=== PATIENT | male | born 1935 | race Hispanic/Latino ===

== ENCOUNTER 2020-12-18 12:33 | Emergency (ER) | payer MEDICARE ==
[2020-12-18] MEDS ORDERED: ACETAMINOPHEN 500 MG TAB PO ONE (13:16)
[2020-12-18 13:54] LABS: Basophils # (Auto) 0.1 K/mm3 (0.0-0.1); Basophils % (Auto) 1.2 % (0.0-1.8); Eosinophils # (Auto) 0.3 K/mm3 (0.0-0.4); Eosinophils % (Auto) 5.8 % (0.0-4.3); Hematocrit 41.3 % (35.5-45.6); Hemoglobin 13.4 gm/dl (11.8-15.2); Lymphocytes # (Auto) 1.3 K/mm3 (1.2-5.4); Lymphocytes % (Auto) 23.6 % (13.4-35.0); Mean Corpuscular HGB Conc 32 % (32-34); Mean Corpuscular Volume 85 fl (84-94); Monocytes # (Auto) 0.7 K/mm3 (0.0-0.8); Monocytes % (Auto) 12.6 % (0.0-7.3); Platelet Count 185 K/mm3 (140-440); Red Blood Count 4.86 M/mm3 (3.65-5.03); Red Cell Distribution Width 14.7 % (13.2-15.2)
[2020-12-18 14:16] LABS: Albumin 4.1 g/dL (3.9-5); Calcium 8.8 mg/dL (8.4-10.2)
--- NOTE | 2020-12-18 15:54 | Emergency Department Report ---
- General Chief complaint: Extremity Problem,Nontraumatic Stated complaint: RT LEG Time Seen by Provider: 12/18/20 15:11 Source: patient Mode of arrival: Wheelchair Limitations: No Limitations - History of Present Illness Initial comments: 85-year-old male presents to ED with rash to bilateral lower legs x2 to 3 weeks. She was initially seen at an urgent care and given a prescription for Bactrim, which he took for 10 days. Patient states the Bactrim did not seem to work and the rash has progressed. Patient denies any pain but reports itching. Patient denies any new products such as lotion, detergent. He denies any yard work or exposure to plants. He denies any insect bites to the ankles or legs. Patient denies any new medications. Patient denies any fever. He denies any pain to the area. Patient states he had a similar occurrence approximately 3 years ago. Patient shows me the scars on his right anterior thigh. Patient states the same thing happened at that time he was given a prescription for triamcinolone cream which helped the rash go away. Patient states he does not remember the diagnosis, but was told at that time that it was something "that old people get." Patient states he does not have any past medical history. He does not see a PCP. He does not take any medications. MD complaint: rash -: week(s) (3) Location: LLE, RLE Severity: moderate Quality: other (Itching) Consistency: constant Improves with: none Worsens with: none Context: other (Denies any new medication, recent illness, recent antibiotics, foreign travel, or insect bites) Treatments Prior to Arrival: antibiotic (Bactrim) - Related Data Previous Rx's Medication Instructions Recorded Last Taken Type Triamcinolone Acetonide [Triderm] 1 applicatio TP BID #454 gm 12/18/20 Unknown Rx Allergies Allergy/AdvReac Type Severity Reaction Status Date / Time No Known Allergies Allergy Unverified 12/18/20 13:19 Abscess Boil HPI - HPI Chief Complaint: Extremity Problem,Nontraumatic Stated Complaint: RT LEG Time Seen by Provider: 12/18/20 15:11 Home Medications: Previous Rx's Medication Instructions Recorded Last Taken Type Triamcinolone Acetonide [Triderm] 1 applicatio TP BID #454 gm 12/18/20 Unknown Rx Allergies/Adverse Reactions: Allergies Allergy/AdvReac Type Severity Reaction Status Date / Time No Known Allergies Allergy Unverified 12/18/20 13:19 ED Review of Systems ROS: Stated complaint: RT LEG Other details as noted in HPI Comment: All other systems reviewed and negative Constitutional: denies: chills, fever Gastrointestinal: denies: nausea, vomiting Skin: rash, pruritus ED Past Medical Hx - Past Medical History Previous Medical History?: No - Surgical History Past Surgical History?: No - Social History Smoking Status: Never Smoker Substance Use Type: None - Medications Home Medications: Home Medications Medication Instructions Recorded Confirmed Last Taken Type Triamcinolone Acetonide [Triderm] 1 applicatio TP BID #454 gm 12/18/20 Unknown Rx ED Physical Exam - General Limitations: No Limitations General appearance: alert, in no apparent distress - Head Head exam: Present: atraumatic, normocephalic - Eye Eye exam: Present: normal appearance, EOMI - ENT ENT exam: Present: mucous membranes moist - Neck Neck exam: Present: normal inspection - Respiratory Respiratory exam: Present: normal lung sounds bilaterally. Absent: respiratory distress - Cardiovascular Cardiovascular Exam: Present: regular rate, normal rhythm - GI/Abdominal GI/Abdominal exam: Present: soft. Absent: distended, tenderness - Extremities Exam Extremities exam: Present: other (Mild swelling to the bilateral feet, ankles, lower legs) - Neurological Exam Neurological exam: Present: alert, oriented X3 - Psychiatric Psychiatric exam: Present: normal affect, normal mood - Skin Skin exam: Present: rash (intact and ruptured blisters on bilateral ankles and lower legs; some areas of hyperpigmentation; no significant erythema; nontender) ED Course Vital Signs 12/18/20 12/18/20 13:17 16:41 Temperature 98.3 F Pulse Rate 64 88 Respiratory 18 16 Rate Blood Pressure 122/72 Blood Pressure 110/64 [Left] O2 Sat by Pulse 99 99 Oximetry ED Medical Decision Making - Lab Data Result diagrams: 12/18/20 13:19 12/18/20 13:19 - Medical Decision Making 85-year-old male with 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 Patient states he had the same exact thing a few years ago which resolved with triamcinolone ointment. Patient has already been on Bactrim without any improvement. Patient is afebrile. WBCs normal. Will discharge with prescription for triamcinolone topical cream 0.1%. I have spoken with the office of Dr. Edgar Ayoub, [employer] business [employer], to arrange for follow-up appointment for patient on December 21 at 2 PM. Patient states he will get his consent to take him to the appointment. Return precautions given. - Differential Diagnosis Cellulitis, contact dermatitis, bullous pemphigoid Critical care attestation.: If time is entered above; I have spent that time in minutes in the direct care of this critically ill patient, excluding procedure time. ED Disposition Clinical Impression: Rash and nonspecific skin eruption Disposition: DC- TO HOME OR SELFCARE Is pt being admited?: No Condition: Stable Instructions: Bullous Pemphigoid, Rash, Adult, [id number] Additional Instructions: Follow up with Dr Edgar Ayoub's nurse practitioner on MondayDecember 21. Your appointment is on MondayDecember 21 at 2:30 PM The address is: [address] [place] [id number] Prescriptions: Triamcinolone Acetonide [Triderm] 1 applicatio TP BID #454 gm Referrals: PRIMARY CARE, [Primary Care Provider] - 3-5 Days Time of Disposition: 16:34
[2020-12-18 16:46] VITALS: BP 110/64
== END 2020-12-18 17:00 | disposition home or self-care (01) ==
LOC: EDBD → ED 12:33
DX: R21 Rash and other nonspecific skin eruption (principal); Z79.899 Other long term (current) drug therapy
CPT/HCPCS: 36415; 80053; 85025